=== PATIENT | female | born 1990 | race Caucasian/White ===

== ENCOUNTER 2017-08-08 04:52 | Inpatient (IN) | payer BC ==
[~2017-08-08 04:52] MED LIST: Lactated Ringers 1,000 ML IV SCH; Sodium Chloride 0.9% 10 ML Syringe FLUSH PRN
[2017-08-08] MEDS ORDERED: Metoclopramide 10 MG/2 ML SDV IVPUSH ONE (06:30)
[2017-08-08] MEDS ORDERED: Citric Acid/Sodium Citrate Solution 30 ML Cup PO ONE (06:30)
[2017-08-08] MEDS ORDERED: Morphine PF 1 MG/ML Amp ONE (06:37)
[2017-08-08] MEDS ORDERED: ceFAZolin 2 GM in Premix Bag 1 BAG IV ONE (07:00)
[2017-08-08] MEDS ORDERED: fentaNYL 100 MCG/2 ML SDV IVPUSH PRN (07:51)
[2017-08-08] MEDS ORDERED: diphenhydrAMINE 50 MG/ML SDV IVPUSH PRN (07:51)
[2017-08-08] MEDS ORDERED: Ondansetron 4 MG/2 ML SDV IVPUSH PRN (07:51)
[2017-08-08] MEDS ORDERED: ePHEDrine 50 MG/ML SDV IVPUSH PRN ×2 (07:51→09:42)
[2017-08-08] MEDS ORDERED: Phenylephrine/Normal Saline 100 MCG/ML 10 ML Syringe ONE (07:59)
[2017-08-08] MEDS ORDERED: Oxytocin/Lactated Ringers 10 UNIT/1,000 ML BAG IV SCH (08:00)
[2017-08-08] MEDS ORDERED: ePHEDrine 50 MG/ML SDV ONE (08:02)
--- NOTE | 2017-08-08 08:07 | PCM.PREANE ---
Preanesthetic Assessment - Anesthesia/Transfusion/Family Hx Anesthesia History: Prior Anesthesia Without Reaction Family History of Anesthesia Reaction: No Transfusion History: No Prior Transfusion(s) - Review of Systems General: No Symptoms Pulmonary: No Symptoms Cardiovascular: No Symptoms Gastrointestinal: No Symptoms Neurological: No Symptoms Other: Reports: Thyroid Problems - Physical Assessment NPO Status Date: 08/07/17 NPO Status Time: 21:30 Pulse: 83 O2 Sat by Pulse Oximetry: 99 Respiratory Rate: 15 Blood Pressure: 116/89 Temperature: 97.9 F Vital Signs: Last Vital Signs Temp 97.9 F 08/08/17 05:16 Pulse 83 08/08/17 05:16 Resp 15 08/08/17 05:16 BP 116/89 08/08/17 05:16 Pulse Ox 99 08/08/17 05:16 Height: 5 ft Weight: 64.818 kg ASA Class: 2 Mental Status: Alert & Oriented x3 Airway Class: Mallampati = 1 Dentition: Reports: Normal Dentition Thyro-Mental Finger Breadths: 3 Mouth Opening Finger Breadths: 3 ROM/Head Extension: Full Lungs: Clear to Auscultation, Normal Respiratory Effort Cardiovascular: Regular Rate, Regular Rhythm - Lab Values: Laboratory Last Values WBC 10.59 K/mm3 (3.98-10.04) H 08/08/17 05:39 RBC 3.96 M/mm3 (3.98-5.22) L 08/08/17 05:39 Hgb 12.1 gm/L (11.2-15.7) 08/08/17 05:39 Hct 37.4 % (34.1-44.9) 08/08/17 05:39 MCV 94.4 fl (79.4-94.8) 08/08/17 05:39 MCH 30.6 pg (25.6-32.2) 08/08/17 05:39 MCHC 32.4 g/dl (32.2-35.5) 08/08/17 05:39 RDW Std Deviation 43.5 fL (36.4-46.3) 08/08/17 05:39 Plt Count 204 K/mm3 (182-369) 08/08/17 05:39 MPV 10.1 fl (9.4-12.3) 08/08/17 05:39 Blood Type A NEGATIVE 08/08/17 05:39 Gel Antibody Screen Positive 08/08/17 05:39 - Allergies Allergies/Adverse Reactions: Allergies Allergy/AdvReac Type Severity Reaction Status Date / Time No Known Allergies Allergy Verified 08/08/17 05:49 - Blood Blood Available: No - Acknowledgements Anesthesia Type Planned: Spinal Pt an Appropriate Candidate for the Planned Anesthesia: Yes Alternatives and Risks of Anesthesia Discussed w Pt/Guardian: Yes Pt/Guardian Understands and Agrees with Anesthesia Plan: Yes PreAnesthesia Questionnaire - Past Health History Medical/Surgical History: Denies Medical/Surgical History HEENT History: Reports: Impaired Vision Other HEENT History: Wears glasses Cardiovascular History: Reports: None Respiratory History: Reports: None [employer] TE[employer] PHYSICIAN History: Reports: None : 2 Para: 1 Other OB/BYN History: Previous in 2014 for chorio Endocrine/Metabolic History: Reports: Hypothyroidism - SUBSTANCE USE Smoking Status *Q: Never Smoker Tobacco Use Within Last Twelve Months: No Second Hand Smoke Exposure: No Recreational Drug Use History: No - HOME MEDS Home Medications: Home Meds Levothyroxine [Levothyroxine] 25 mcg PO DAILY 08/08/17 [History] Levothyroxine [Levothyroxine] 200 mcg PO DAILY 08/08/17 [History] Vit #108/Iron/FA [ One Tablet] 1 each PO DAILY 08/08/17 [ History] - CURRENT (IN HOUSE) MEDS Current Meds: Current Medications Diphenhydramine HCl (Benadryl) 25 mg IVPUSH Q6H PRN PRN Reason: pruritis Stop: 08/08/17 10:30 Ephedrine Sulfate (Ephedrine Sulfate) 5 mg IVPUSH ASDIRECTED PRN PRN Reason: Hypotension Stop: 08/08/17 10:30 Fentanyl (Sublimaze) 50 mcg IVPUSH Q5M PRN PRN Reason: Pain Stop: 08/08/17 10:30 Lactated Ringer's (Ringers, Lactated) 1,000 mls @ 125 mls/hr IV ASDIRECTED [facility] Last Admin: 08/08/17 06:27 Dose: 125 mls/hr Oxytocin/Lactated Ringer's (Pitocin In Lr 10 Units/1,000 Ml) 10 unit in 1,000 mls @ 100 mls/hr IV ASDIRECTED [facility] PRN Reason: Protocol Ondansetron HCl (Zofran) 4 mg IVPUSH ONETIME PRN PRN Reason: Nausea/Vomiting Stop: 08/08/17 10:30 Sodium Chloride (Saline Flush) 10 ml FLUSH ASDIRECTED PRN PRN Reason: Keep Vein Open Discontinued Medications Citric Acid/Sodium Citrate (Bicitra Solution) 30 ml PO ONETIME ONE Stop: 08/08/17 06:31 Last Admin: 08/08/17 06:28 Dose: 30 ml Ephedrine Sulfate (Ephedrine Sulfate) Confirm Administered Dose 50 mg .ROUTE .STK-MED ONE Stop: 08/08/17 08:03 Cefazolin Sodium/Dextrose 2 gm (/ Premix) 50 mls @ 100 mls/hr IV ONETIME ONE Stop: 08/08/17 07:29 Metoclopramide HCl (Reglan) 10 mg IVPUSH ONETIME ONE Stop: 08/08/17 06:31 Last Admin: 08/08/17 06:29 Dose: 10 mg Morphine Sulfate (Duramorph Pf) Confirm Administered Dose 1 mg .ROUTE .STK-MED ONE Stop: 08/08/17 06:38 Phenylephrine HCl (Phenylephrine In Ns 100 Mcg/Ml) Confirm Administered Dose 1 mg .ROUTE .STK-MED ONE Stop: 08/08/17 08:00
--- NOTE | 2017-08-08 08:38 | PCM.OPNOTE ---
- General Post-Op/Procedure Note Date of Surgery/Procedure: 08/08/17 Operative Procedure(s): Repeat low transverse Findings: Moderate scar tissue between the fasica and rectus. Bladder somewhat adherent to lower uterine segment. Baby boy in a vertex presentation with weight of 7 lbs 4 oz and APGARS of 9 & 9. Grossly normal appearance of the uterus, fallopian tubes, and ovaries. Pre Op Diagnosis: 39 weeks gestation. Hx of Post-Op Diagnosis: Same Anesthesia Technique: Spinal Primary Surgeon: Chio Almodovar Secondary Surgeon: Lizbet Vail Anesthesia Provider: David Armas Reason Director Imaging Was Necessary: Speed of case, patient safety Pathology: Cord blood collected. Placenta discarded Fluid Replacement, Intraop: 2,800 Output, Urine Amount: 180 EBL in mLs: 800 Complications: None Condition: Good Free Text/Narrative:: The risks, benefits, indications, potential complications, and alternatives were explained to the patient and informed consent obtained. After induction of anesthesia, the patient was placed in a supine position and then draped and prepped in the usual sterile manner. A Pfannenstiel incision was made and carried down through the subcutaneous tissue to the fascia. Fascial incision was made and extended transversely. The fascia was from the underlying rectus tissue superiorly and inferiorly. The peritoneum was identified and entered. Peritoneal incision was extended longitudinally. The utero-vesical peritoneal reflection was incised transversely and the bladder flap was bluntly freed from the lower uterine segment. A low transverse uterine incision was made sharply with a scalpel and extended bluntly in a cephalocaudad direction. A baby boy was delivered from a vertex presentation with APGARS as above. After the umbilical cord was clamped and cut cord blood was obtained for evaluation. The placenta was removed intact and appeared normal. The uterus was exteriorized and cleared of clots. The uterine outline, tubes and ovaries appeared normal. The uterine incision was closed with running locked sutures of 0 Vicryl. Hemostasis was obtained with a second imbricating layer of 0 vicryl suture. The uterus was then placed back into the abdomen. The infracolic gutters were cleared of blood clots. The fascia was then reapproximated with running sutures of 0 Vicryl. The sucutaneous tissue was irrigated with sterile warm normal saline, hemostasis obtained with cautery. The skin was reapproximated with running Subcuticular 4 -0 monocryl sutures. Instrument, sponge, and needle counts were correct prior the abdominal closure and at the conclusion of the case.
[2017-08-08] MEDS ORDERED: Meperidine PF 50 MG/ML Syringe ONE (08:40)
--- NOTE | 2017-08-08 08:44 | PCM.POSTAN ---
POST ANESTHESIA ASSESSMENT - MENTAL STATUS Mental Status: Alert, Oriented - VITAL SIGNS Pulse Rate: 66 SaO2: 100 Resp Rate: 16 Blood Pressure: 120/75 Temperature: 98.2 F - RESPIRATORY Respiratory Status: Respiratory Rate WNL, Airway Patent, O2 Saturation Stable, Supplemental Oxygen - CARDIOVASCULAR CV Status: Pulse Rate WNL, Blood Pressure Stable - GASTROINTESTINAL GI Status: No Symptoms - PAIN Pain Score: 0 - POST OP HYDRATION Hydration Status: Adequate & Stable
[2017-08-08] MEDS ORDERED: Levothyroxine 25 MCG Tab PO SCH (09:00)
[2017-08-08] MEDS ORDERED: Docusate Sodium 100 MG Cap PO PRN (09:42)
[2017-08-08] MEDS ORDERED: Ibuprofen 600 MG Tab PO PRN (09:42)
[2017-08-08] MEDS ORDERED: Dextrose 5%-Lactated Ringers 1,000 ML IV SCH (09:42)
[2017-08-08] MEDS ORDERED: Lanolin 100% Cream 7 GM Tube TOP PRN (09:42)
[2017-08-08] MEDS ORDERED: Ondansetron 4 MG/2 ML SDV IV PRN (09:42)
[2017-08-08] MEDS: Ketorolac 30 MG/ML SDV IVPUSH SCH ×2 (14:52→20:46)
[2017-08-08] MEDS: LEVOTHYROXINE 200 MCG PO SCH (16:39)
[2017-08-08] MEDS: LEVOTHYROXINE 25 MCG PO SCH (16:40)
[2017-08-09] MEDS: Ketorolac 30 MG/ML SDV IVPUSH SCH (02:26)
--- NOTE | 2017-08-09 07:20 | PCM.PNPP ---
- General Info Date of Service: 08/09/17 Functional Status: Reports: Pain Controlled, Tolerating Diet, Ambulating - Review of Systems General: Reports: No Symptoms Pulmonary: Reports: No Symptoms Cardiovascular: Reports: No Symptoms Gastrointestinal: Reports: Abdominal Pain (manageable) Genitourinary: Reports: No Symptoms Musculoskeletal: Reports: No Symptoms - Patient Data Vital Signs - Most Recent: Last Vital Signs Temp 36.7 C 08/08/17 20:49 Pulse 81 08/08/17 20:49 Resp 16 08/09/17 04:00 BP 123/67 08/08/17 20:49 Pulse Ox 100 08/09/17 04:00 Weight - Most Recent: 64.818 kg I&O - Last 24 Hours: Intake & Output 08/08/17 08/09/17 08/09/17 22:59 06:59 14:59 Intake Total 3300 Output Total 1455 950 Balance 1845 -950 Lab Results - Last 24 Hours: Laboratory Results - last 24 hr 08/08/17 08/08/17 08/09/17 Range/Units 05:39 11:21 05:06 WBC 10.33 H (3.98-10.04) K/mm3 RBC 3.06 L (3.98-5.22) M/mm3 Hgb 9.4 L (11.2-15.7) gm/L Hct 29.3 L (34.1-44.9) % MCV 95.8 H (79.4-94.8) fl MCH 30.7 (25.6-32.2) pg MCHC 32.1 L (32.2-35.5) g/dl RDW Std Deviation 43.6 (36.4-46.3) fL Plt Count 151 L (182-369) K/mm3 MPV 9.9 (9.4-12.3) fl Blood Type A NEGATIVE A NEGATIVE Gel Antibody Screen Positive Positive Screen 0 ros/5 flds - neg RhIG Candidate? Yes Rhogam Indicated Yes, baby rh pos H Med Orders - Current: Current Medications Docusate Sodium (Colace) 100 mg PO Q12H PRN PRN Reason: Constipation Emollient Ointment (Lansinoh Hpa) 0 gm TOP ASDIRECTED PRN PRN Reason: Sore Nipples Ephedrine Sulfate (Ephedrine Sulfate) 5 mg IVPUSH SEECOMMENT PRN PRN Reason: Other Ibuprofen (Motrin) 600 mg PO Q6H PRN PRN Reason: mild pain or fever Ondansetron HCl (Zofran) 4 mg IV Q8H PRN PRN Reason: Nausea/Vomiting Last Admin: 08/08/17 11:51 Dose: 4 mg Oxycodone/Acetaminophen (Percocet 325-5 Mg) 2 tab PO Q4H PRN PRN Reason: Pain (moderate 4-6) Levothyroxine 25 Mcg (Tab.) 0 each PO DAILY REPLACED BY [facility] Last Admin: 08/08/17 16:40 Dose: 1 each Levothyroxine 200 (Mcg Tab.) 0 each PO DAILY REPLACED BY [facility] Last Admin: 08/08/17 16:39 Dose: 1 each Discontinued Medications Citric Acid/Sodium Citrate (Bicitra Solution) 30 ml PO ONETIME ONE Stop: 08/08/17 06:31 Last Admin: 08/08/17 06:28 Dose: 30 ml Diphenhydramine HCl (Benadryl) 25 mg IVPUSH Q6H PRN PRN Reason: pruritis Stop: 08/08/17 10:30 Ephedrine Sulfate (Ephedrine Sulfate) Confirm Administered Dose 50 mg .ROUTE .STK-MED ONE Stop: 08/08/17 08:03 Ephedrine Sulfate (Ephedrine Sulfate) 5 mg IVPUSH ASDIRECTED PRN PRN Reason: Hypotension Stop: 08/08/17 10:30 Fentanyl (Sublimaze) 50 mcg IVPUSH Q5M PRN PRN Reason: Pain Stop: 08/08/17 10:30 Cefazolin Sodium/Dextrose 2 gm (/ Premix) 50 mls @ 100 mls/hr IV ONETIME ONE Stop: 08/08/17 07:29 Last Admin: 08/08/17 11:04 Dose: Not Given Lactated Ringer's (Ringers, Lactated) 1,000 mls @ 125 mls/hr IV ASDIRECTED REPLACED BY [facility] Last Admin: 08/08/17 06:27 Dose: 125 mls/hr Oxytocin/Lactated Ringer's (Pitocin In Lr 10 Units/1,000 Ml) 10 unit in 1,000 mls @ 100 mls/hr IV ASDIRECTED REPLACED BY [facility] PRN Reason: Protocol Dextrose/Lactated Ringer's (Dextrose 5%-Lactated Ringers) 1,000 mls @ 125 mls/ hr IV ASDIRECTED [facility] Stop: 08/08/17 17:41 Last Admin: 08/08/17 11:53 Dose: 125 mls/hr Ibuprofen (Motrin) 600 mg PO Q6H PRN PRN Reason: mild pain or fever Ketorolac Tromethamine (Toradol) 30 mg IVPUSH Q6H REPLACED BY [facility] Stop: 08/09/17 02:21 Last Admin: 08/09/17 02:26 Dose: 30 mg Levothyroxine Sodium (Levothyroxine) 25 mcg PO DAILY REPLACED BY [facility] Levothyroxine Sodium (Levothyroxine) 200 mcg PO DAILY REPLACED BY [facility] Meperidine HCl (Demerol) Confirm Administered Dose 50 mg .ROUTE .STK-MED ONE Stop: 08/08/17 08:41 Metoclopramide HCl (Reglan) 10 mg IVPUSH ONETIME ONE Stop: 08/08/17 06:31 Last Admin: 08/08/17 06:29 Dose: 10 mg Morphine Sulfate (Duramorph Pf) Confirm Administered Dose 1 mg .ROUTE .STK-MED ONE Stop: 08/08/17 06:38 Ondansetron HCl (Zofran) 4 mg IVPUSH ONETIME PRN PRN Reason: Nausea/Vomiting Stop: 08/08/17 10:30 Phenylephrine HCl (Phenylephrine In Ns 100 Mcg/Ml) Confirm Administered Dose 1 mg .ROUTE .STK-MED ONE Stop: 08/08/17 08:00 Sodium Chloride (Saline Flush) 10 ml FLUSH ASDIRECTED PRN PRN Reason: Keep Vein Open - Interaction Infant Disposition, : [place] in Room with Family Interaction: Holding Infant Feeding: Breastfed ; Nursed Well Support Person: - Recovery Exam Fundal Tone: Firm Fundal Level: 1 Fingerbreadths Below Umbilicus Fundal Placement: Midline Lochia Amount: Scant, Small Lochia Color: Rubra/Red Perineum Description: Intact, Minimal Bruising/Swelling Episiotomy/Laceration: None Bladder Status: Indwelling Catheter in Place Urinary Elimination: Indwelling Catheter - Exam General: Alert, Oriented, Cooperative Lungs: Clear to Auscultation, Normal Respiratory Effort Cardiovascular: Regular Rate, Regular Rhythm GI/Abdominal Exam: Soft Extremities: Normal Inspection Skin: Warm, Dry, Intact Wound/Incisions: Dressing Dry and Intact - Problem List & Annotations (1) History of SNOMED Code(s): 461676893 Code(s): Z98.891 - HISTORY OF UTERINE SCAR FROM PREVIOUS SURGERY Status: Acute Current Visit: Yes (2) 39 weeks gestation of SNOMED Code(s): 99917654 Code(s): Z3A.39 - 39 WEEKS GESTATION OF Status: Acute Current Visit: Yes (3) S/P repeat low transverse SNOMED Code(s): 045446083, 901552101, 434476773 Code(s): Z98.891 - HISTORY OF UTERINE SCAR FROM PREVIOUS SURGERY Status: Acute Current Visit: Yes (4) Thyroid disease affecting SNOMED Code(s): 37368321 Code(s): O99.280 - ENDO, NUTRITIONAL AND METAB DISEASES COMP PREG, UNSP TRI; E07.9 - DISORDER OF THYROID, UNSPECIFIED Status: Acute Current Visit: Yes (5) Rh negative state in antepartum period SNOMED Code(s): 739293074 Code(s): O09.899 - SUPERVISION OF OTHER HIGH RISK PREGNANCIES, UNSP TRIMESTER ; Z67.91 - UNSPECIFIED BLOOD TYPE, RH NEGATIVE Status: Acute Current Visit: Yes - Problem List Review Problem List Initiated/Reviewed/Updated: Yes - My Orders Last 24 Hours: My Active Orders 08/08/17 07:45 Noel Catheter Insertion [Insert Urinary Catheter] [OM.PC] Stat 08/08/17 09:42 Activity as Tolerated [RC] .Routine Antiembolic Devices [RC] PER UNIT ROUTINE Communication Order [RC] PER UNIT ROUTINE Communication Order [RC] PER UNIT ROUTINE Intake and Output [RC] Q4H Notify Provider Intake and Out [RC] ASDIRECTED RT Incentive Spirometry [RC] Q2HWA Acetaminophen/oxyCODONE [Percocet 325-5 MG] 2 tab PO Q4H PRN Docusate Sodium [Colace] 100 mg PO Q12H PRN Lanolin [Lansinoh HPA] See Dose Instructions TOP ASDIRECTED PRN Ondansetron [Zofran] 4 mg IV Q8H PRN ePHEDrine [ePHEDrine Sulfate] 5 mg IVPUSH SEECOMMENT PRN Assess Lochia [WOMSER] Per Unit Routine Assess Uterine Involution [WOMSER] Per Unit Routine Breast Pump [WOMSER] Per Unit Routine Heat Therapy [OM.PC] Per Unit Routine Sequential Compression Device [OM.PC] Per Unit Routine 08/08/17 10:24 Urinary Catheter Assessment [RC] ASDIRECTED 08/08/17 11:21 SCREEN [BBK] Routine RH IMMUNE GLOBULIN [BBK] Routine RHOGAM, [RHIG WORKUP, ] [BBK] Routine 08/08/17 12:28 Patient's Own Medication [Ptom] 0 each PO DAILY 08/08/17 12:29 Patient's Own Medication [Ptom] 0 each PO DAILY 08/08/17 Lunch Regular Diet [DIET] 08/09/17 08:20 Ibuprofen [Motrin] 600 mg PO Q6H PRN 08/09/17 08:46 Urinary Catheter Removal [RC] Per Unit Routine - Assessment Assessment:: 26 y/o woman POD#1 from [facility] at 39 2/7 wks - Plan Plan:: * Routine cares * Encourage breast feeding * Rhogam to be given, baby Rh positive * Continue home synthroid dose. Will need to decrease to pre- dosing on discharge
--- NOTE | 2017-08-09 08:30 | PCM48HPAN ---
Post Anesthesia Note - EVALUATION WITHIN 48HRS OF ANESTHETIC Vital Signs in Normal Range: Yes Patient Participated in Evaluation: Yes Respiratory Function Stable: Yes Airway Patent: Yes Cardiovascular Function Stable: Yes Hydration Status Stable: Yes Pain Control Satisfactory: Yes Nausea and Vomiting Control Satisfactory: Yes (nausea for about 4 hours yesterday. resolved) Mental Status Recovered: Yes Pulse Rate: 81 Resp Rate: 16 Temperature: 98.1 F Blood Pressure: 123/67
[2017-08-09] MEDS: Ibuprofen 600 MG Tab PO PRN ×2 (09:10→18:26)
[2017-08-09] MEDS: LEVOTHYROXINE 25 MCG PO SCH (15:02)
[2017-08-09] MEDS: LEVOTHYROXINE 200 MCG PO SCH (15:02)
[2017-08-09] MEDS: Acetaminophen/oxyCODONE 325-5 MG Tab PO PRN ×2 (20:57→21:42)
[2017-08-10] MEDS: Ibuprofen 600 MG Tab PO PRN (03:57)
[2017-08-10] MEDS: Acetaminophen/oxyCODONE 325-5 MG Tab PO PRN (03:58)
--- NOTE | 2017-08-10 07:18 | PCM.PNPP ---
- General Info Date of Service: 08/10/17 Functional Status: Reports: Pain Controlled, Tolerating Diet, Ambulating, Urinating - Review of Systems General: Reports: No Symptoms Pulmonary: Reports: No Symptoms Cardiovascular: Reports: No Symptoms Gastrointestinal: Reports: Abdominal Pain (manageable with medications ) Genitourinary: Reports: No Symptoms Musculoskeletal: Reports: No Symptoms Neurological: Reports: No Symptoms - Patient Data Vital Signs - Most Recent: Last Vital Signs Temp 36.7 C 08/09/17 20:54 Pulse 97 08/09/17 20:54 Resp 18 08/09/17 20:54 BP 116/81 08/09/17 20:54 Pulse Ox 97 08/09/17 20:54 Weight - Most Recent: 64.818 kg I&O - Last 24 Hours: Intake & Output 08/09/17 08/10/17 08/10/17 22:59 06:59 14:59 Intake Total 0 Balance 0 Lab Results - Last 24 Hours: Laboratory Results - last 24 hr 08/08/17 Range/Units 11:21 Blood Type A NEGATIVE Gel Antibody Screen Positive Screen 0 ros/5 flds - neg RhIG Candidate? Yes Rhogam Indicated Yes, baby rh pos H Med Orders - Current: Current Medications Docusate Sodium (Colace) 100 mg PO Q12H PRN PRN Reason: Constipation Emollient Ointment (Lansinoh Hpa) 0 gm TOP ASDIRECTED PRN PRN Reason: Sore Nipples Last Admin: 08/09/17 12:11 Dose: 1 tube Ephedrine Sulfate (Ephedrine Sulfate) 5 mg IVPUSH SEECOMMENT PRN PRN Reason: Other Ibuprofen (Motrin) 600 mg PO Q6H PRN PRN Reason: mild pain or fever Last Admin: 08/10/17 03:57 Dose: 600 mg Ondansetron HCl (Zofran) 4 mg IV Q8H PRN PRN Reason: Nausea/Vomiting Last Admin: 08/08/17 11:51 Dose: 4 mg Oxycodone/Acetaminophen (Percocet 325-5 Mg) 2 tab PO Q4H PRN PRN Reason: Pain (moderate 4-6) Last Admin: 08/10/17 03:58 Dose: 1 tab Levothyroxine 25 Mcg (Tab.) 0 each PO DAILY [facility] Last Admin: 08/09/17 15:02 Dose: 25 each Levothyroxine 200 (Mcg Tab.) 0 each PO DAILY [facility] Last Admin: 08/09/17 15:02 Dose: 200 each Discontinued Medications Citric Acid/Sodium Citrate (Bicitra Solution) 30 ml PO ONETIME ONE Stop: 08/08/17 06:31 Last Admin: 08/08/17 06:28 Dose: 30 ml Diphenhydramine HCl (Benadryl) 25 mg IVPUSH Q6H PRN PRN Reason: pruritis Stop: 08/08/17 10:30 Ephedrine Sulfate (Ephedrine Sulfate) Confirm Administered Dose 50 mg .ROUTE .STK-MED ONE Stop: 08/08/17 08:03 Ephedrine Sulfate (Ephedrine Sulfate) 5 mg IVPUSH ASDIRECTED PRN PRN Reason: Hypotension Stop: 08/08/17 10:30 Fentanyl (Sublimaze) 50 mcg IVPUSH Q5M PRN PRN Reason: Pain Stop: 08/08/17 10:30 Cefazolin Sodium/Dextrose 2 gm (/ Premix) 50 mls @ 100 mls/hr IV ONETIME ONE Stop: 08/08/17 07:29 Last Admin: 08/08/17 11:04 Dose: Not Given Lactated Ringer's (Ringers, Lactated) 1,000 mls @ 125 mls/hr IV ASDIRECTED [facility] Last Admin: 08/08/17 06:27 Dose: 125 mls/hr Oxytocin/Lactated Ringer's (Pitocin In Lr 10 Units/1,000 Ml) 10 unit in 1,000 mls @ 100 mls/hr IV ASDIRECTED [facility] PRN Reason: Protocol Dextrose/Lactated Ringer's (Dextrose 5%-Lactated Ringers) 1,000 mls @ 125 mls/ hr IV ASDIRECTED [facility] Stop: 08/08/17 17:41 Last Admin: 08/08/17 11:53 Dose: 125 mls/hr Ibuprofen (Motrin) 600 mg PO Q6H PRN PRN Reason: mild pain or fever Ketorolac Tromethamine (Toradol) 30 mg IVPUSH Q6H [facility] Stop: 08/09/17 02:21 Last Admin: 08/09/17 02:26 Dose: 30 mg Levothyroxine Sodium (Levothyroxine) 25 mcg PO DAILY [facility] Levothyroxine Sodium (Levothyroxine) 200 mcg PO DAILY [facility] Meperidine HCl (Demerol) Confirm Administered Dose 50 mg .ROUTE .STK-MED ONE Stop: 08/08/17 08:41 Metoclopramide HCl (Reglan) 10 mg IVPUSH ONETIME ONE Stop: 08/08/17 06:31 Last Admin: 08/08/17 06:29 Dose: 10 mg Morphine Sulfate (Duramorph Pf) Confirm Administered Dose 1 mg .ROUTE .STK-MED ONE Stop: 08/08/17 06:38 Ondansetron HCl (Zofran) 4 mg IVPUSH ONETIME PRN PRN Reason: Nausea/Vomiting Stop: 08/08/17 10:30 Phenylephrine HCl (Phenylephrine In Ns 100 Mcg/Ml) Confirm Administered Dose 1 mg .ROUTE .STK-MED ONE Stop: 08/08/17 08:00 Sodium Chloride (Saline Flush) 10 ml FLUSH ASDIRECTED PRN PRN Reason: Keep Vein Open - Infant Interaction Infant Disposition, : [place] in Room with Family Infant Interaction: Holding Feeding: Breastfed Infant; Nursed Well Support Person: - Recovery Exam Fundal Tone: Firm Fundal Level: 1 Fingerbreadths Below Umbilicus Fundal Placement: Midline Lochia Amount: Small Lochia Color: Rubra/Red Perineum Description: Intact, Minimal Bruising/Swelling Episiotomy/Laceration: None Bladder Status: Voiding Urinary Elimination: Voided - Exam General: Alert, Oriented, Cooperative Lungs: Clear to Auscultation, Normal Respiratory Effort Cardiovascular: Regular Rate, Regular Rhythm GI/Abdominal Exam: Soft, Tender (appropriate post op) Extremities: Normal Inspection Skin: Warm, Dry, Intact Wound/Incisions: Healing Well, No Drainage - Problem List & Annotations (1) History of SNOMED Code(s): 262994607 Code(s): Z98.891 - HISTORY OF UTERINE SCAR FROM PREVIOUS SURGERY Status: Acute Current Visit: Yes (2) 39 weeks gestation of SNOMED Code(s): 92652294 Code(s): Z3A.39 - 39 WEEKS GESTATION OF Status: Acute Current Visit: Yes (3) S/P repeat low transverse SNOMED Code(s): 592188117, 543390784, 575027550 Code(s): Z98.891 - HISTORY OF UTERINE SCAR FROM PREVIOUS SURGERY Status: Acute Current Visit: Yes (4) Thyroid disease affecting SNOMED Code(s): 49574860 Code(s): O99.280 - ENDO, NUTRITIONAL AND METAB DISEASES COMP PREG, UNSP TRI; E07.9 - DISORDER OF THYROID, UNSPECIFIED Status: Acute Current Visit: Yes (5) Rh negative state in antepartum period SNOMED Code(s): 580006067 Code(s): O09.899 - SUPERVISION OF OTHER HIGH RISK PREGNANCIES, UNSP TRIMESTER ; Z67.91 - UNSPECIFIED BLOOD TYPE, RH NEGATIVE Status: Acute Current Visit: Yes - Problem List Review Problem List Initiated/Reviewed/Updated: Yes - My Orders Last 24 Hours: My Active Orders 08/09/17 08:20 Ibuprofen [Motrin] 600 mg PO Q6H PRN 08/10/17 07:17 Ready for Discharge [RC] PER UNIT ROUTINE - Assessment Assessment:: 26 y/o woman POD#2 from [facility] at 39 2/7 wks - Plan Plan:: * Routine cares * Encourage breast feeding * Rhogam given, baby Rh positive * Synthroid to be decreased to 200 mcg on discharge * Discharge home today
--- NOTE | 2017-08-10 07:18 | PCM.DCSUM1 ---
Discharge Summary - Discharge Data Discharge Date: 08/10/17 Discharge Disposition: Home, Self-Care 01 Condition: Good - Discharge Diagnosis/Problem(s) (1) History of SNOMED Code(s): 081592997 ICD Code: Z98.891 - HISTORY OF UTERINE SCAR FROM PREVIOUS SURGERY Status: Acute Current Visit: Yes (2) 39 weeks gestation of SNOMED Code(s): 37378799 ICD Code: Z3A.39 - 39 WEEKS GESTATION OF Status: Acute Current Visit: Yes (3) S/P repeat low transverse SNOMED Code(s): 366122827, 773986914, 011349889 ICD Code: Z98.891 - HISTORY OF UTERINE SCAR FROM PREVIOUS SURGERY Status: Acute Current Visit: Yes (4) Thyroid disease affecting SNOMED Code(s): 82821116 ICD Code: O99.280 - ENDO, NUTRITIONAL AND METAB DISEASES COMP PREG, UNSP TRI ; E07.9 - DISORDER OF THYROID, UNSPECIFIED Status: Acute Current Visit: Yes (5) Rh negative state in antepartum period SNOMED Code(s): 576023946 ICD Code: O09.899 - SUPERVISION OF OTHER HIGH RISK PREGNANCIES, UNSP TRIMESTER; Z67.91 - UNSPECIFIED BLOOD TYPE, RH NEGATIVE Status: Acute Current Visit: Yes - Patient Summary/Data Operative Procedure(s) Performed: Repeat low transverse Complications: None Consults: None Recommended Follow-up Testing/Procedures: Follow up in 1-2 weeks for incision check Hospital Course: patient is a 26-year-old who presents at 39-2/7 weeks for planned repeat . This was uncomplicated. See delivery note for full details. she did well and was discharged home on postop day #2. - Patient Instructions Diet: Regular Diet as Tolerated Activity: No Lifting Over 10 Pounds Activity, Other: Pelvic Rest for 6 weeks Driving: Do Not Drive (While taking narcotics ) Showering/Bathing: May Shower, No Tub Bathing/Swimming Wound/Incision Care: Keep Operative Site/Wound Site Clean and Dry Notify Provider of: Fever, Increased Pain, Swelling and Redness, Drainage, Nausea and/or Vomiting - Discharge Plan Prescriptions/Med Rec: Acetaminophen/oxyCODONE [Percocet 325-5 MG] 2 tab PO Q4H PRN #25 tablet PRN Reason: Pain (Moderate 4-6) Home Medications: Home Meds Levothyroxine 200 mcg PO DAILY 08/08/17 [History] Vit #108/Iron/FA [ One Tablet] 1 each PO DAILY 08/08/17 [ History] Acetaminophen/oxyCODONE [Percocet 325-5 MG] 2 tab PO Q4H PRN #25 tablet [Rx] Docusate Sodium [Colace] 100 mg PO Q12H PRN cap 08/10/17 [Rx] Ibuprofen [IJD: Ibuprofen] 600 mg PO Q6H PRN tablet 08/10/17 [Rx] Patient Handouts: Home Care Instructions for Mom, Challenges and Solutions Referrals: Chio Almodovar MD [Primary Care Provider] - (1-2 weeks for incision check ) - Discharge Summary/Plan Comment DC Time >30 min.: No - Patient Data Vitals - Most Recent: Last Vital Signs Temp 36.7 C 08/09/17 20:54 Pulse 97 08/09/17 20:54 Resp 18 08/09/17 20:54 BP 116/81 08/09/17 20:54 Pulse Ox 97 08/09/17 20:54 Weight - Most Recent: 64.818 kg I&O - Last 24 hours: Intake & Output 08/09/17 08/10/17 08/10/17 22:59 06:59 14:59 Intake Total 0 Balance 0 Lab Results - Last 24 hrs: Laboratory Results - last 24 hr 08/08/17 Range/Units 11:21 Blood Type A NEGATIVE Gel Antibody Screen Positive Screen 0 ros/5 flds - neg RhIG Candidate? Yes Rhogam Indicated Yes, baby rh pos H Med Orders - Current: Current Medications Docusate Sodium (Colace) 100 mg PO Q12H PRN PRN Reason: Constipation Emollient Ointment (Lansinoh Hpa) 0 gm TOP ASDIRECTED PRN PRN Reason: Sore Nipples Last Admin: 08/09/17 12:11 Dose: 1 tube Ephedrine Sulfate (Ephedrine Sulfate) 5 mg IVPUSH SEECOMMENT PRN PRN Reason: Other Ibuprofen (Motrin) 600 mg PO Q6H PRN PRN Reason: mild pain or fever Last Admin: 08/10/17 03:57 Dose: 600 mg Ondansetron HCl (Zofran) 4 mg IV Q8H PRN PRN Reason: Nausea/Vomiting Last Admin: 08/08/17 11:51 Dose: 4 mg Oxycodone/Acetaminophen (Percocet 325-5 Mg) 2 tab PO Q4H PRN PRN Reason: Pain (moderate 4-6) Last Admin: 08/10/17 03:58 Dose: 1 tab Levothyroxine 25 Mcg (Tab.) 0 each PO DAILY [facility] Last Admin: 08/09/17 15:02 Dose: 25 each Levothyroxine 200 (Mcg Tab.) 0 each PO DAILY [facility] Last Admin: 08/09/17 15:02 Dose: 200 each Discontinued Medications Citric Acid/Sodium Citrate (Bicitra Solution) 30 ml PO ONETIME ONE Stop: 08/08/17 06:31 Last Admin: 08/08/17 06:28 Dose: 30 ml Diphenhydramine HCl (Benadryl) 25 mg IVPUSH Q6H PRN PRN Reason: pruritis Stop: 08/08/17 10:30 Ephedrine Sulfate (Ephedrine Sulfate) Confirm Administered Dose 50 mg .ROUTE .STK-MED ONE Stop: 08/08/17 08:03 Ephedrine Sulfate (Ephedrine Sulfate) 5 mg IVPUSH ASDIRECTED PRN PRN Reason: Hypotension Stop: 08/08/17 10:30 Fentanyl (Sublimaze) 50 mcg IVPUSH Q5M PRN PRN Reason: Pain Stop: 08/08/17 10:30 Cefazolin Sodium/Dextrose 2 gm (/ Premix) 50 mls @ 100 mls/hr IV ONETIME ONE Stop: 08/08/17 07:29 Last Admin: 08/08/17 11:04 Dose: Not Given Lactated Ringer's (Ringers, Lactated) 1,000 mls @ 125 mls/hr IV ASDIRECTED [facility] Last Admin: 08/08/17 06:27 Dose: 125 mls/hr Oxytocin/Lactated Ringer's (Pitocin In Lr 10 Units/1,000 Ml) 10 unit in 1,000 mls @ 100 mls/hr IV ASDIRECTED [facility] PRN Reason: Protocol Dextrose/Lactated Ringer's (Dextrose 5%-Lactated Ringers) 1,000 mls @ 125 mls/ hr IV ASDIRECTED [facility] Stop: 08/08/17 17:41 Last Admin: 08/08/17 11:53 Dose: 125 mls/hr Ibuprofen (Motrin) 600 mg PO Q6H PRN PRN Reason: mild pain or fever Ketorolac Tromethamine (Toradol) 30 mg IVPUSH Q6H [facility] Stop: 08/09/17 02:21 Last Admin: 08/09/17 02:26 Dose: 30 mg Levothyroxine Sodium (Levothyroxine) 25 mcg PO DAILY [facility] Levothyroxine Sodium (Levothyroxine) 200 mcg PO DAILY [facility] Meperidine HCl (Demerol) Confirm Administered Dose 50 mg .ROUTE .STK-MED ONE Stop: 08/08/17 08:41 Metoclopramide HCl (Reglan) 10 mg IVPUSH ONETIME ONE Stop: 08/08/17 06:31 Last Admin: 08/08/17 06:29 Dose: 10 mg Morphine Sulfate (Duramorph Pf) Confirm Administered Dose 1 mg .ROUTE .STK-MED ONE Stop: 08/08/17 06:38 Ondansetron HCl (Zofran) 4 mg IVPUSH ONETIME PRN PRN Reason: Nausea/Vomiting Stop: 08/08/17 10:30 Phenylephrine HCl (Phenylephrine In Ns 100 Mcg/Ml) Confirm Administered Dose 1 mg .ROUTE .STK-MED ONE Stop: 08/08/17 08:00 Sodium Chloride (Saline Flush) 10 ml FLUSH ASDIRECTED PRN PRN Reason: Keep Vein Open *Q Meaningful Use (DIS) - VTE *Q VTE Criteria *Q: - Stroke *Q Stroke Criteria *Q: - AMI *Q AMI Criteria *Q:
== END 2017-08-10 08:30 | disposition home or self-care (01) | DRG 540 ==
LOC: JD.OB 04:52
PROVIDERS: ADMIT Obstetrics & Gynecology; ATTEND Obstetrics & Gynecology
PROC: 10D00Z1 Extraction of Products of Conception, Low, Open Approach (ICD-10-PCS; principal; 2017-08-08)
DX: O34.211 Maternal care for low transverse scar from previous cesarean delivery (principal); N85.8 Other specified noninflammatory disorders of uterus; O99.284 Endocrine, nutritional and metabolic diseases complicating childbirth; Z3A.39 39 weeks gestation of pregnancy; Z37.0 Single live birth; Z79.899 Other long term (current) drug therapy
CPT/HCPCS: 36415; 85027; 85461; 86850; 86900; 86901; 94762; A9270-GY; J1885; J2175; J2274; J2405; J2765; J2790; J7042; J7120